=== PATIENT | female | born 2005 | race Caucasian/White ===

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

== ENCOUNTER 2024-10-01 19:39 | Emergency (ER) | payer SELFPAY ==
[2024-10-01] VITALS (8 sets, daily range): BP systolic 115–141; BP diastolic 81–100; PULSE 89–102; RESP 19–24; TEMP 36.6–36.7; O2SAT 95–97
--- NOTE | ~2024-10-01 | XR_ITS ---
CHEST RADIOGRAPH, PA AND LATERAL CLINICAL HISTORY: sob . COMPARISON: None available TECHNIQUE: PA and lateral views of the chest. FINDINGS The cardiomediastinal silhouette is unremarkable. The lungs are clear. IMPRESSION: No focal infiltrate or effusion. Reviewed, dictated and finalized at location A.
--- NOTE | 2024-10-01 19:40 | ECG_ITS ---
Test Date: 2024-10-01 19:48:00 Measurements Intervals [place] Rate: 87 P: 66 UT: 118 QRS: 83 QRSD: 93 T: -29 QT: 368 QTc: 445 Interpretive Statements SINUS RHYTHM WITH SHORT UT INTERVAL ST-T WAVE ABNORMALITY IN INFERIOR LEADS- CONSIDER ISCHEMIA BASELINE ARTIFACT- I, III, AVL, V4-V6 ABNORMAL ECG No previous ECG available for comparison Electronically Signed On 10-01-2024 20:57:08 CDT by Juancho iVllalobos D.O.
--- NOTE | 2024-10-01 19:46 | ED_ITS ---
HPI - SOB/Dyspnea General Chief Complaint: Shortness of Breath/Dyspnea Stated Complaint: sob, mucous Time Seen by Provider: 10/01/24 19:41 History of Present Illness HPI Narrative: 19-year-old otherwise healthy female presenting to the emergency department for several weeks of productive cough and shortness of breath especially at night when she lies down. Denies any other medical complaints and states that she has had a productive cough that is now changing color from clear to green yellow mucus. Denies any chest pain or difficulty in breathing. Remote history of asthma but does not use any inhalers. Subjective fever and chills but no measurable temperature. Denies any nausea vomiting, abdominal pain, back pain dysuria. Denies chance of . No urinary complaints. No sore throat or scratchy throat sensation. No one around her with similar symptoms. States hilda t she has tried Mucinex and Mucinex related products which do improve her symptoms but has been going on for close to a month. Related Data Home Medications ?Medication ?Instructions ?Recorded ?Confirmed ?Last Taken ?Type etonogestrel 0.12 mg-ethinyl See Rx Instructions .Route .COMPLEX 01/29/22 01/29/22 Unknown History estradiol 0.015 mg/24 hr vaginal ring (EluRyng) Allergies Allergy/AdvReac Type Severity Reaction Status Date / Time No Known Allergies Allergy Verified 10/01/24 19:47 Review of Systems Review of Systems: As reviewed above in HPI PMFSH Past Medical History Medical History Chest wall contusion No pertinent past medical history Surgical History Surgical History No pertinent past surgical history Family History Family History Father Hypertension Hyperlipidemia Social History Social History Smoking status: Never smoker Alcohol intake: never Substance use: never Living arrangements: with family Gender identity (if verbalized by the patient): Female Exam Narrative: GENERAL: [Well-appearing, well-nourished, and in no acute distress.] HEAD: [Normocephalic, atraumatic.] EYES: [PERRLA and EOMI.] ENT: Nares clear, no rhinorrhea or epistaxis. Mucous membranes moist. No posterior oropharyngeal erythema or exudates. Tonsils without any enlargement NECK: Supple. CHEST: Coarse breath sounds in the left upper lobe compared to the clear right- sided breath sounds without any wheezing or tachypnea. No retractions or accessory muscle use. HEART: [Regular rate and rhythm]. No murmur heard. [Normal peripheral pulses.] ABDOMEN: [Soft, nondistended], [nontender], [No rigidity or guarding] EXTREMITIES: Normal range of motion. [No edema.] SKIN: Warm, dry, no rash. NEURO: [No focal deficits]. Alert and oriented [x3.] PSYCH: [Normal mood and affect.] Course Vital Signs Vital signs: Vital Signs Temperature 36.7 C 10/01/24 19:42 Pulse Rate 100 10/01/24 19:42 Respiratory Rate 22 H 10/01/24 19:42 Blood Pressure 127/100 H 10/01/24 19:42 Pulse Oximetry 96 10/01/24 19:42 Oxygen Delivery Room Air 10/01/24 19:42 Temperature 36.6 C 10/01/24 20:48 Pulse Rate 98 10/01/24 20:48 Respiratory Rate 22 H 10/01/24 20:48 Blood Pressure 134/81 10/01/24 20:48 Pulse Oximetry 96 10/01/24 20:48 Oxygen Delivery Room Air 10/01/24 19:54 MDM - SOB/Dyspnea MDM Narrative Medical decision making narrative: 19-year-old otherwise healthy female presenting with several weeks of productive cough, congestion and shortness of breath when she lies down to rest. Endorses smoking marijuana and cigarettes but denies any other medical problems. She has a asymmetric breath sounds especially in the left upper lobe that sounds very coarse compared to the clear right-sided breath sounds. Endorses feeling better with Mucinex. No significant tachypnea, fever or hypoxia. Differential includes bronchitis, pneumonia, pneumothorax less likely. Possibility of upper respiratory infection such as COVID or flu or other viral disease. Chest x-ray was obtained as well as knee COVID fluid RSV swabs obtained. She was given loratadine and pseudoephedrine for symptom control. EKG is nonischemic and without ectopy. Sinus rhythm. Chest x-ray independently reviewed does not show any focal consolidations or fluid collections but given patient's respiratory complaints and very coarse breath sounds focally left-sided this likely represents an atypical pneumonia. Will be treated with a course of doxycycline. Provide 1st dose here as well as discharge instructions and return precautions. Medical Records Attestation: I reviewed the patient's medical records. Lab Data Attestation: I reviewed the patient's lab results. Labs: Lab Results 10/01/24 Range/Units 19:57 Influenza A (RT-PCR) Negative (Negative) Influenza B (RT-PCR) Negative (Negative) RSV (RT-PCR) Negative (Negative) SARS-CoV-2 RNA (RT-PCR) Negative (Negative) Imaging Data Attestation: I personally reviewed and interpreted this imaging study as follows: My impression: Impressions Chest X-Ray 10/01/24 20:20 IMPRESSION: No focal infiltrate or effusion. Discharge Plan Discharge Clinical Impression: Atypical pneumonia Patient Disposition: Home Condition: Stable Instructions: Antibiotic Form, Pneumonia (ED) Additional Instructions: Your chest x-ray does not show any focal consolidations or fluid collections but given your asymmetric lung sounds and respiratory complaints for several weeks this likely represents an atypical pneumonia infection which is usually responsive to a short course of antibiotics as well as Tessalon Perles which can help with cough. Will prescribe 5 days of antibiotics and you can continue taking symptom controlling medications including Mucinex, pseudoephedrine, loratadine. Follow-up with regular primary care provider. Return with any emergencies. Patient Language: Italian Prescriptions: New doxycycline hyclate 100 mg capsule 100 mg PO BID 5 Days Qty: 10 0RF benzonatate 200 mg capsule 200 mg PO TID PRN (Reason: cough) Qty: 20 0RF No Action etonogestrel-ethinyl estradiol [EluRyng] 0.12-0.015 mg/24 hr ring See Rx Instructions .ROUTE .COMPLEX Rx Instructions: as prescribed tramadol 50 mg tablet 50 mg PO Q8H PRN (Reason: pain) Qty: 15 0RF Follow-up/Referrals: PHYSICIAN,TAKER OFF HEMP FIBER [Primary Care Provider] -
--- NOTE | 2024-10-01 20:07 | PC.NURSE ---
This RN spoke to pharmacy and was told they will bring pt medication up shortly.
[2024-10-01] MEDS: LORATADINE/PSEUDOEPHEDRINE (*CRX) 10/240 MG TABLET ER 24 HR 1 TAB PO (20:17)
[2024-10-01] MEDS: DOXYCYCLINE HYCLATE 100 MG TABLET PO (20:31)
[2024-10-01 20:40] LABS: Influenza A QL RT-PCR Negative (Negative); Influenza B QL RT-PCR Negative (Negative); RSV RNA, RT-PCR Negative (Negative); SARS-CoV-2 RNA PCR Negative (Negative)
== END 2024-10-01 20:51 | disposition home or self-care (01) ==
PROVIDERS: Emergency Provider Student in an Organized Health Care Education/Training Program
DX: J18.9 Pneumonia, unspecified organism (principal); Z20.822 Contact with and (suspected) exposure to COVID-19
CPT/HCPCS: 71046; 87637; 93005; 99284; A9270

== ENCOUNTER 2024-10-20 21:41 | Emergency (ER) | payer SELFPAY ==
--- NOTE | ~2024-10-20 | XR_ITS ---
Clinical Indication: Cough PA view of the chest: Comparison: 10/01/2024 Findings: The lungs are clear, without evidence of focal consolidation or pleural effusion. Cardiome diastinal silhouette is within normal limits. Bones and soft tissues are unremarkable. Impression: Normal chest. Reviewed, dictated and finalized at [facility]. Impression: Normal chest.
[2024-10-20 21:43] VITALS: BP 137/56; PULSE 63; RESP 17; TEMP 36.6; O2SAT 99
--- NOTE | 2024-10-20 22:22 | ED.URI ---
HPI - URI/Sore Throat General Chief Complaint: Upper Respiratory Infection Stated Complaint: pna Time Seen by Provider: 10/20/24 22:06 History of Present Illness HPI Narrative: 19-year-old female with reported history of exercise-induced asthma presents to the emergency department for cough for the past several weeks. Patient states the cough is productive. She states she is coughing fits caused her to be short of breath otherwise she does not feel short of breath without coughing. She denies any chest pain, lower extremity edema, hemoptysis, fevers. She was seen in our ED on 10/01/2024 for the same presentation and was started on doxycycline due to concerns for an atypical pneumonia. Chest x-ray showed no focal consolidations or fluid collections. The patient states she took the antibiotics as directed and completed the entire course and did have improvement, however the cough continues to linger. She does not use any breathing treatments or inhalers at home. Related Data Home Medications ?Medication ?Instructions ?Recorded ?Confirmed ?Last Taken ?Type etonogestrel 0.12 mg-ethinyl See Rx Instructions .Route .COMPLEX 01/29/22 01/29/22 Unknown History estradiol 0.015 mg/24 hr vaginal ring (EluRyng) Allergies Allergy/AdvReac Type Severity Reaction Status Date / Time No Known Allergies Allergy Verified 10/20/24 21:45 Review of Systems Review of Systems: All systems reviewed & are unremarkable except as noted in HPI and below PMFSH Past Medical History Medical History Chest wall contusion No pertinent past medical history Surgical History Surgical History No pertinent past surgical history Family History Family History Father Hypertension Hyperlipidemia Social History Social History Smoking status: Never smoker Alcohol intake: never Substance use: never Living arrangements: with family Gender identity (if verbalized by the patient): Female Exam Narrative: GENERAL: Well-appearing, well-nourished, and in no acute distress. HEAD: Normocephalic, atraumatic. EYES: EOMI. ENT: Nares clear, no rhinorrhea or epistaxis. Mucous membranes moist. NECK: Supple. CHEST: Faint expiratory wheezing throughout all lung lee. No rales or rhonchi. Patient satting 99% on room air in no respiratory distress. HEART: Regular rate and rhythm. No murmur heard. Normal peripheral pulses. ABDOMEN: Soft, nontender, nondistended, normal active bowel sounds. EXTREMITIES: Normal range of motion. No edema. SKIN: Warm, dry, no rash. NEURO: No focal deficits. Alert and oriented x3 Course Vital Signs Vital signs: Vital Signs Temperature 97.9 F 10/20/24 21:43 Pulse Rate 63 10/20/24 21:43 Respiratory Rate 17 10/20/24 21:43 Blood Pressure 137/56 L 10/20/24 21:43 Pulse Oximetry 99 10/20/24 21:43 Temperature 97.9 F 10/20/24 21:43 Pulse Rate 74 10/20/24 22:46 Respiratory Rate 16 10/20/24 22:46 Blood Pressure 137/56 L 10/20/24 21:43 Pulse Oximetry 99 10/20/24 21:43 MDM - URI/Sore Throat MDM Narrative Medical decision making narrative: 19-year-old female with reported history of exercise-induced asthma presents to emergency department for several weeks of productive cough. Patient was treated with doxycycline for presumed atypical pneumonia on 10/01/2024. She took the course of antibiotics as directed with improvement, however reports a cough still remains. Vital signs are stable. She is afebrile and nontoxic appearing. She is satting 99% on room air in no respiratory distress. Lung sounds with faint expiratory wheeze throughout all lung lee. She was given a DuoNeb with resolution of wheezing and improvement in symptoms. Her chest x-ray shows no acute cardiopulmonary findings. I suspect bronchitis. Will trial steroids, albuterol inhaler and benzonatate. Advised to follow-up closely with her PCP and discussed strict ED return precautions. She is agreeable with the plan verbalized understanding. Discharged in stable condition. Discharge Plan Discharge Clinical Impression: Bronchitis Patient Disposition: Home Condition: Stable Instructions: Antibiotic Form, Acute Bronchitis (ED) Additional Instructions: Please take the medications as directed. Follow-up closely with the primary care provider I have referred you to. Return to the emergency department if you develop a fever, chest pain, shortness of breath or other concerning symptoms. Patient Language: Frisian Prescriptions: New prednisone 20 mg tablet 40 mg PO DAILY Qty: 10 0RF benzonatate 200 mg capsule 200 mg PO BID PRN (Reason: cough) Qty: 14 0RF albuterol sulfate 90 mcg/actuation HFA aerosol inhaler 1 inh inhalation QID PRN (Reason: shortness of breath or wheezing) Qty: 6.7 0RF No Action etonogestrel-ethinyl estradiol [EluRyng] 0.12-0.015 mg/24 hr ring See Rx Instructions .ROUTE .COMPLEX Rx Instructions: as prescribed tramadol 50 mg tablet 50 mg PO Q8H PRN (Reason: pain) Qty: 15 0RF doxycycline hyclate 100 mg capsule 100 mg PO BID 5 Days Qty: 10 0RF benzonatate 200 mg capsule 200 mg PO TID PRN (Reason: cough) Qty: 20 0RF Follow-up/Referrals: PHYSICIAN,FRONT END DEVELOPER DESIGNER [Primary Care Provider] - Yaya Hinds MD [Physician] -
[2024-10-20 22:36] VITALS: PULSE 70; RESP 16
[2024-10-20] MEDS: IPRATROPIUM 0.5 MG/ALBUTEROL SULFATE 2.5 MG AMPUL.NEB 3 ML INHALATION (22:36)
[2024-10-20 22:46] VITALS: PULSE 74; RESP 16
== END 2024-10-20 23:22 | disposition home or self-care (01) ==
LOC: ANHED 23:05
PROVIDERS: Emergency Provider Physician Assistant
DX: J40 Bronchitis, not specified as acute or chronic (principal)
CPT/HCPCS: 71045; 94640; 99283; J7512

== ENCOUNTER 2024-11-07 00:31 | Emergency (ER) | payer SELFPAY ==
[2024-11-07 00:56] VITALS: BP 108/72; PULSE 60; RESP 18; TEMP 36.6; O2SAT 96
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
[2024-11-07] MEDS: OFLOXACIN 0.3% OPHTH SOLN 5 ML BTL 5 DROP RIGHT EAR (02:20)
== END 2024-11-07 02:24 | disposition home or self-care (01) ==
PROVIDERS: Emergency Provider Physician Assistant
DX: H60.501 Unspecified acute noninfective otitis externa, right ear (principal); H66.91 Otitis media, unspecified, right ear
CPT/HCPCS: 99283; A9270

== ENCOUNTER 2024-12-06 16:04 | Emergency (ER) | payer SELFPAY ==
--- NOTE | ~2024-12-06 | XR_ITS ---
EXAMINATION: XR chest 2V DATE: 12/06/2024 16:45 INDICATION: Shortness of breath TECHNIQUE: PA and lateral views of the chest were obtained. COMPARISON: Chest radiograph dated 10/20/2024 FINDINGS: The lungs remain clear with no focal airspace opacities, pulmonary edema, pleural effusion or pneumothorax. The cardiomediastinal silhouette is normal. Visualized bones and soft tissues are unremarkable. IMPRESSION: 1. Normal chest radiograph. Reviewed, dictated and finalized at location A. IMPRESSION: 1. Normal chest radiograph.
[2024-12-06 16:12] VITALS: O2SAT 96
[2024-12-06 16:16] VITALS: BP 121/75; PULSE 69; RESP 17; TEMP 36.6; O2SAT 95
--- NOTE | 2024-12-06 16:18 | ECG_ITS ---
Test Date: 2024-12-06 16:33:16 Measurements Intervals [place] Rate: 61 P: 79 [place]: 119 QRS: 81 QRSD: 85 T: 32 QT: 405 QTc: 410 Interpretive Statements SINUS RHYTHM WITH MARKED SINUS ARRHYTHMIA WITH SHORT [place] INTERVAL ATRIAL PREMATURE COMPLEX INCOMPLETE RIGHT BUNDLE BRANCH BLOCK BORDERLINE ST-T WAVE ABNORMALITY- INFERIOR LEADS BASELINE ARTIFACT- I, III, V3 ABNORMAL ECG Compared to ECG 10/01/2024 19:48:00 No significant changes Electronically Signed On 12-07-2024 17:03:17 CDT by Juancho Villalobos D.O.
[2024-12-06 16:31] LABS: Hematocrit 39.6 % (37.0-47.0); Hemoglobin 13.2 g/dL (12.0-15.0); Immature Granulocyte Percent A 0.1 % (0-0.5); Lymphocytes Absolute Auto 1.40 K/mm3 (0.9-3.2); Mean Corpuscular HGB Conc 33.3 g/dl (32-36); Mean Corpuscular Hemoglobin 29.8 pg (26-34); Mean Corpuscular Volume 89.4 fl (80-100); Nucleated Red Blood Cells Absolute Auto 0.000 K/mm3 (0.0-0.012); Nucleated Red Blood Cells Perc 0.0 % (0.0-0.2); Platelet Count Result 246 k/mm3 (150-375); Red Blood Count 4.43 M/mm3 (4.2-5.4); White Blood Count 7.5 K/mm3 (4.5-10.0)
[2024-12-06 16:33] VITALS: PULSE 88
[2024-12-06 16:42] LABS: Alanine Aminotransferase 11 U/L (6-35); Albumin Level 4.2 g/dL (3.5-5.1); Alkaline Phosphatase 80 U/L (38-126); Anion Gap 11 mmol/L (4-12); Aspartate Amino Transferase 21 U/L (14-36); Bilirubin,Total 0.8 mg/dL (0.2-1.3); Blood Urea Nitrogen 10 mg/dL (7-17); Calcium 9.3 mg/dL (8.4-10.2); Carbon Dioxide 20 mmol/L (22-30); Chloride 108 mmol/L (98-107); Estimated Glomerular Filt Rate > 60; Glucose 89 mg/dL (65-110); Potassium 3.4 mmol/L (3.4-5.0); Sodium 139 mmol/L (137-145); Total Protein 6.9 g/dL (6.3-8.2)
[2024-12-06 16:52] LABS: Schistocytes None Seen
--- NOTE | 2024-12-06 17:07 | ED_ITS ---
HPI - SOB/Dyspnea General Chief Complaint: Shortness of Breath/Dyspnea Stated Complaint: Shortness of breath Time Seen by Provider: 12/06/24 16:27 History of Present Illness HPI Narrative: This is a 19-year-old female with history of exercise-induced asthma who presents the ED for shortness of breath. Patient states that for the past day, she has been having worsening shortness of breath that is worse with exertion and with changing positions. Denies chest pain. Patient is a smoker. Denies fevers, chills, nausea, vomiting, diarrhea, constipation, abdominal pain. Related Data Home Medications ?Medication ?Instructions ?Recorded ?Confirmed ?Last Taken ?Type etonogestrel 0.12 mg-ethinyl See Rx Instructions .Rout e .COMPLEX 01/29/22 01/29/22 Unknown History estradiol 0.015 mg/24 hr vaginal ring (EluRyng) Allergies Allergy/AdvReac Type Severity Reaction Status Date / Time No Known Allergies Allergy Verified 12/06/24 16:18 Review of Systems 2 Review of Systems: Gen.: Denies fevers or chills Eyes: Denies eye pain or visual change ENT: Denies congestion Respiratory: As per HPI CV: Denies chest pain or palpitations GI: Denies abdominal pain nausea, emesis or diarrhea denies burning, urgency, frequency or hematuria Musculoskeletal: Denies back pain or muscle pain Neuro: Denies numbness, tingling, weakness or focal weakness Skin: Denies rash Except as documented, all other systems reviewed and negative PMFSH Past Medical History Medical History Chest wall contusion No pertinent past medical history Surgical History Surgical History No pertinent past surgical history Family History Family History Father Hypertension Hyperlipidemia Social History Social History Smoking status: Never smoker Alcohol intake: never Substance use: never Living arrangements: with family Gender identity (if verbalized by the patient): Female Exam 2 Narrative: APPEARANCE: No acute distress, nontoxic, resting in bed EYES: EOMI HEENT: Normocephalic, atraumatic, OMM RESPIRATORY: No respiratory distress. Diminished breath sounds throughout with expiratory wheezes. CARDIOVASCULAR: Regular rate and rhythm without murmurs rubs or gallops. ABDOMINAL: Soft, nontender, nondistended, no rebound or guarding MUSCULOSKELETAL: Moves all extremities. No clubbing, cyanosis or edema. NEURO: Awake and alert. Following commands, speech normal, no focal deficits SKIN:: Warm, dry. No rashes lesions or abrasions PSYCHIATRIC: Normal affect/mood, Course Vital Signs Vital signs: Vital Signs Pulse Oximetry 96 12/06/24 16:12 Oxygen Delivery Room Air 12/06/24 16:12 Temperature 97.8 F 12/06/24 16:16 Pulse Rate 70 12/06/24 18:29 Respiratory Rate 18 12/06/24 18:29 Blood Pressure 126/78 12/06/24 18:29 Pulse Oximetry 97 12/06/24 18:29 Oxygen Delivery Room Air 12/06/24 16:12 MDM - SOB/Dyspnea MDM Narrative Medical decision making narrative: 19-year-old female who presents to the ED for shortness of breath. On initial evaluation, patient was in no acute distress, afebrile, hemodynamically stable. She is satting 96-97% on room air. She did have diminished breath sounds throughout with expiratory wheezes. Chest x-ray showed no acute process. Labs without significant abnormalities. Patient was given DuoNeb with moderate improvement of her symptoms. Suspect patient does have an asthma exacerbation causing her symptoms. She will be given prescriptions for prednisone and albuterol inhaler as she has not filled 1 in several months. Patient was given referral to [facility] for further evaluation and to establish care. Patient was agreeable to this plan. Given strict return precautions. Differential Diagnosis Differential diagnosis: Likely community acquired pneumonia, asthma with exacerbation and other (bronchitis) Medical Records Attestation: I reviewed the patient's medical records. Lab Data Attestation: I reviewed the patient's lab results. 12/06/24 16:25 12/06/24 16:25 Labs: Lab Results 12/06/24 12/06/24 Range/Units 16: 16:39 WBC 7.5 (4.5-10.0) K/mm3 RBC 4.43 (4.2-5.4) M/mm3 Hgb 13.2 (12.0-15.0) g/dL Hct 39.6 (37.0-47.0) % MCV 89.4 (80-100) fl MCH 29.8 (26-34) pg MCHC 33.3 (32-36) g/dl RDW 13.3 (11.5-14.5) % Plt Count 246 (150-375) k/mm3 MPV 10.7 H (7.4-10.4) fl Immature Gran % (Auto) 0.1 (0-0.5) % Neut % (Auto) 52.7 (45.5-73.1) % Lymph % (Auto) 18.7 (18.3-44.2) % Coleman % (Auto) 6.3 (2.6-8.5) % Eos % (Auto) 21.4 H (0-4.4) % Baso % (Auto) 0.8 (0.2-1.2) % Lymph # (Auto) 1.40 (0.9-3.2) K/mm3 Coleman # (Auto) 0.5 (0.1-0.6) K/mm3 Eos # (Auto) 1.6 H (0-0.3) K/mm3 Baso # (Auto) 0.1 (0.0-0.1) K/mm3 Abs Immat Gran (auto) 0.01 (0.00-0.031) K/mm3 Absolute Neuts (auto) 4.0 (1.3-6.7) K/mm3 Absolute Nucleated RBC 0.000 (0.0-0.012) K/mm3 Band Neutrophils % Not Reportable Nucleated RBC % 0.0 (0.0-0.2) % Atypical Lymphocytes Present Platelet Estimate Adequate (Adequate) Large Platelets Present Schistocytes None seen Sodium 139 (137-145) mmol/L Potassium 3.4 (3.4-5.0) mmol/L Chloride 108 H (98-107) mmol/L Carbon Dioxide 20 L (22-30) mmol/L Anion Gap 11 (4-12) mmol/L BUN 10 (7-17) mg/dL Creatinine 0.60 L (0.7-1.0) mg/dL Estim Creat Clear Calc Not Reportable Estimated GFR > 60 (59 - ) Glucose 89 (65-110) mg/dL Calcium 9.3 (8.4-10.2) mg/dL Total Bilirubin 0.8 (0.2-1.3) mg/dL AST 21 (14-36) U/L ALT 11 (6-35) U/L Alkaline Phosphatase 80 (38-126) U/L Total Protein 6.9 (6.3-8.2) g/dL Albumin 4.2 (3.5-5.1) g/dL Influenza A (RT-PCR) Negative (Negative) Influenza B (RT-PCR) Negative (Negative) RSV (RT-PCR) Negative (Negative) SARS-CoV-2 RNA (RT-PCR) Negative (Negative) Imaging Data Radiologist's impression: Impressions Chest X-Ray 12/06/24 16:51 IMPRESSION: 1. Normal chest radiograph. Discharge Plan Discharge Clinical Impression: Asthma exacerbation Patient Disposition: Home Condition: Stable Instructions: Antibiotic Form, Asthma (ED) Additional Instructions: The likely have an asthma exacerbation. Take the prednisone and albuterol as prescribed. Your given referral to [facility] here at [place]. Return the ED for any new or worsening symptoms. Patient Language: Sami Prescriptions: New prednisone 20 mg tablet 20 mg PO DAILY Qty: 5 0RF albuterol sulfate [Ventolin HFA] 90 mcg/actuation HFA aerosol inhaler 1 inh inhalation QID PRN (Reason: shortness of breath or wheezing) Qty: 8.5 0RF No Action etonogestrel-ethinyl estradiol [EluRyng] 0.12-0.015 mg/24 hr ring See Rx Instructions .ROUTE .COMPLEX Rx Instructions: as prescribed tramadol 50 mg tablet 50 mg PO Q8H PRN (Reason: pain) Qty: 15 0RF doxycycline hyclate 100 mg capsule 100 mg PO BID 5 Days Qty: 10 0RF benzonatate 200 mg capsule 200 mg PO TID PRN (Reason: cough) Qty: 20 0RF prednisone 20 mg tablet 40 mg PO DAILY Qty: 10 0RF benzonatate 200 mg capsule 200 mg PO BID PRN (Reason: cough) Qty: 14 0RF albuterol sulfate 90 mcg/actuation HFA aerosol inhaler 1 inh inhalation QID PRN (Reason: shortness of breath or wheezing) Qty: 6.7 0RF amoxicillin-pot clavulanate 875-125 mg tablet 1 tablet PO Q12H Qty: 20 0RF ofloxacin 0.3 % drops 10 drp EACH EAR DAILY 7 Days Qty: 10 0RF Follow-up/Referrals: PHYSICIAN,CONSULTING SERVICES PROJECT MANAGER [Primary Care Provider, Internal Medicine] Yaya Hinds MD [Physician, Family Practice]
[2024-12-06] MEDS: IPRATROPIUM 0.5 MG/ALBUTEROL SULFATE 2.5 MG AMPUL.NEB 3 ML INHALATION (17:23)
[2024-12-06 17:27] VITALS: PULSE 52; RESP 20
[2024-12-06 17:30] VITALS: PULSE 60; RESP 17
[2024-12-06 17:32] LABS: Influenza A QL RT-PCR Negative (Negative); Influenza B QL RT-PCR Negative (Negative); RSV RNA, RT-PCR Negative (Negative); SARS-CoV-2 RNA PCR Negative (Negative)
[2024-12-06 18:29] VITALS: BP 126/78; PULSE 70; RESP 18; O2SAT 97
== END 2024-12-06 18:30 | disposition home or self-care (01) ==
PROVIDERS: Emergency Medicine; Emergency Provider Student in an Organized Health Care Education/Training Program
DX: J45.901 Unspecified asthma with (acute) exacerbation (principal); Z20.822 Contact with and (suspected) exposure to COVID-19; F17.200 Nicotine dependence, unspecified, uncomplicated
CPT/HCPCS: 36415; 71046; 80053; 85025; 87637; 93005; 94640; 99284

== ENCOUNTER 2024-12-30 13:10 | Emergency (ER) | payer SELFPAY ==
[2024-12-30 13:14] VITALS: BP 142/73; PULSE 105; RESP 18; TEMP 37; O2SAT 95
[2024-12-30 13:50] VITALS: RESP 16
--- NOTE | 2024-12-30 13:56 | ED_ITS ---
HPI - General Adult General Chief complaint: Unspecified Stated complaint: med refill Time Seen by Provider: 12/30/24 13:29 History of Present Illness HPI narrative: Patient is a 19-year-old female who presents ER with shortness of breath. Has history of asthma. Symptoms are worse at night. She has run out of her inhaler and would like a refill. She has no dyspnea at this time. No fevers or chills or sweats. No productive cough. No chest pain or chest tightness. She does not have a PCP the stools come here for refill. Related Data Home Medications ?Medication ?Instructions ?Recorded ?Confirmed ?Last Taken ?Type etonogestrel 0.12 mg-ethinyl See Rx Instructions .Rout e .COMPLEX 01/29/22 01/29/22 Unknown History estradiol 0.015 mg/24 hr vaginal ring (EluRyng) Allergies Allergy/AdvReac Type Severity Reaction Status Date / Time No Known Allergies Allergy Verified 12/30/24 13:17 Review of Systems Constitutional: Constitutional: Reports no additional constitutional complaints Cardiovascular: Cardiovascular: Reports no additional cardiovascular complaints Respiratory: Respiratory: Reports no additional respiratory complaints PMFSH Past Medical History Medical History Chest wall contusion No pertinent past medical history Surgical History Surgical History No pertinent past surgical history Family History Family History Father Hypertension Hyperlipidemia Social History Social History Smoking status: Never smoker Alcohol intake: never Substance use: never Living arrangements: with family Gender identity (if verbalized by the patient): Female Exam Narrative: GENERAL: Well-appearing, well-nourished, and in no acute distress. HEAD: Normocephalic, atraumatic ENT: Mucous membranes moist. CHEST: Clear to auscultation. No respiratory distress. HEART: Regular rate and rhythm. Normal peripheral pulses. EXTREMITIES: Normal range of motion. No edema. NEURO: Alert and oriented x3. PSYCH: Normal mood and affect. Course Course Emergency Course: Patient resting comfortably. Speaking full sentences. No wheezing on exam. Will refill albuterol inhaler. Vital Signs Vital signs: Vital Signs Temperature 98.6 F 12/30/24 13:14 Pulse Rate 105 H 12/30/24 13:14 Respiratory Rate 18 12/30/24 13:14 Blood Pressure 142/73 H 12/30/24 13:14 Pulse Oximetry 95 12/30/24 13:14 Oxygen Delivery Room Air 12/30/24 13:14 Temperature 98.6 F 12/30/24 13:14 Pulse Rate 105 H 12/30/24 13:14 Respiratory Rate 18 12/30/24 13:14 Blood Pressure 142/73 H 12/30/24 13:14 Pulse Oximetry 95 12/30/24 13:14 Oxygen Delivery Room Air 12/30/24 13:14 Medical Decision Making Vital Signs Vital Signs: Vital Signs Temperature 98.6 F 12/30/24 13:14 Pulse Rate 105 H 12/30/24 13:14 Respiratory Rate 18 12/30/24 13:14 Blood Pressure 142/73 H 12/30/24 13:14 Pulse Oximetry 95 12/30/24 13:14 Oxygen Delivery Room Air 12/30/24 13:14 Temperature 98.6 F 12/30/24 13:14 Pulse Rate 105 H 12/30/24 13:14 Respiratory Rate 18 12/30/24 13:14 Blood Pressure 142/73 H 12/30/24 13:14 Pulse Oximetry 95 12/30/24 13:14 Oxygen Delivery Room Air 12/30/24 13:14 Discharge Plan Discharge Clinical Impression: Asthma, Medication refill Patient Disposition: Home Condition: Stable Instructions: Asthma (ED) Additional Instructions: Please return to the emergency department if you develop severe and persistent chest pain, difficulty breathing, dizziness, leg swelling or if you are coughing up blood as these can be signs of a medical emergency. Please call your doctor for a follow up appointment to determine the need for further testing. Patient Language: Icelandic Prescriptions: New albuterol sulfate 90 mcg/actuation HFA aerosol inhaler 2 puff inhalation QID PRN (Reason: shortness of breath or wheezing) Qty: 8.5 0RF No Action etonogestrel-ethinyl estradiol [EluRyng] 0.12-0.015 mg/24 hr ring See Rx Instructions .ROUTE .COMPLEX Rx Instructions: as prescribed tramadol 50 mg tablet 50 mg PO Q8H PRN (Reason: pain) Qty: 15 0RF prednisone 20 mg tablet 20 mg PO DAILY Qty: 5 0RF albuterol sulfate [Ventolin HFA] 90 mcg/actuation HFA aerosol inhaler 1 inh inhalation QID PRN (Reason: shortness of breath or wheezing) Qty: 8.5 0RF doxycycline hyclate 100 mg capsule 100 mg PO BID 5 Days Qty: 10 0RF benzonatate 200 mg capsule 200 mg PO TID PRN (Reason: cough) Qty: 20 0RF prednisone 20 mg tablet 40 mg PO DAILY Qty: 10 0RF benzonatate 200 mg capsule 200 mg PO BID PRN (Reason: cough) Qty: 14 0RF albuterol sulfate 90 mcg/actuation HFA aerosol inhaler 1 inh inhalation QID PRN (Reason: shortness of breath or wheezing) Qty: 6.7 0RF amoxicillin-pot clavulanate 875-125 mg tablet 1 tablet PO Q12H Qty: 20 0RF ofloxacin 0.3 % drops 10 drp EACH EAR DAILY 7 Days Qty: 10 0RF Follow-up/Referrals: PHYSICIAN,SUPERVISOR CUSTOMER COMPLAINT SERVICE [Primary Care Provider, Internal Medicine] Yaya Hinds MD [Physician, Family Practice] - 1 Week
== END 2024-12-30 14:44 | disposition home or self-care (01) ==
PROVIDERS: Emergency Provider Emergency Medicine
DX: J45.909 Unspecified asthma, uncomplicated (principal); Z76.0 Encounter for issue of repeat prescription
CPT/HCPCS: 99283

== ENCOUNTER 2025-02-13 12:34 | Emergency (ER) | payer SELFPAY ==
[2025-02-13 12:35] VITALS: BP 122/74; PULSE 95; RESP 18; TEMP 36.9; O2SAT 99
--- NOTE | 2025-02-13 15:42 | PC.NURSE ---
Patient did not answer page @ [id number]
== END 2025-02-13 16:11 | disposition left against medical advice (07) ==
LOC: ANHED 16:05
DX: R10.9 Unspecified abdominal pain (principal)
CPT/HCPCS: 99199